=== PATIENT | male | born 1990 | race African-American/Black ===

== ENCOUNTER 2017-08-06 09:01 | Emergency (ER) | payer OTHER ==
[~2017-08-06] VITALS: Ht 177.8 cm; Wt 150.0 kg
[~2017-08-06 09:01] MED LIST: CEPHALEXIN500 MG PO; FLEXERIL PO; ULTRAM50 M1 PO
[2017-08-06] MEDS ORDERED: TOBREX OPTH5 ML/BTL OD (10:08)
[2017-08-06 10:16] VITALS: BP 165/104
== END 2017-08-06 10:20 | disposition home or self-care (01) | DRG 125 ==
LOC: ED 09:01
DX: H10.9 Unspecified conjunctivitis (principal); F17.210 Nicotine dependence, cigarettes, uncomplicated